=== PATIENT | male | born 1995 | race Caucasian/White ===

== ENCOUNTER 2024-03-20 11:52 | Outpatient (REF) | payer OTHER, SELFPAY ==
[2024-03-21 14:24] LABS: Amphetamine Screen Urine Not Detected (Not Detect); Barbiturates, Urine Not Detected (Not Detect); Benzodiazepines Screen Urine Not Detected (Not Detect); Buprenorphine Scr Not Detected (Not Detect); Cannabinoid Screen Urine POSITIVE (Not Detect); Cocaine Screen Urine Not Detected (Not Detect); Fentanyl, urine Not Detected (Not Detect); Methadone Screen, Urine Not Detected (Not Detect); Opiate Screen Urine Not Detected (Not Detect); Oxycodone Screen Urine Not Detected (Not Detect); Phencyclidine Screen Urine Not Detected (Not Detect)
== END 2024-03-20 11:53 | disposition home or self-care (01) ==
LOC: HO.LNP 11:52
PROVIDERS: Visit Provider Psychiatry & Neurology Psychiatry
DX: F33.2 Major depressive disorder, recurrent severe without psychotic features (principal); F12.20 Cannabis dependence, uncomplicated; F41.1 Generalized anxiety disorder
CPT/HCPCS: 80307

== ENCOUNTER → 2024-03-20 12:30 | Outpatient (BNV) | payer OTHER, SELFPAY | PROVIDERS: Visit Provider Psychiatry & Neurology Psychiatry | DX: F34.1 Dysthymic disorder (principal); F84.9 Pervasive developmental disorder, unspecified; F12.20 Cannabis dependence, uncomplicated; F41.3 Other mixed anxiety disorders; F17.200 Nicotine dependence, unspecified, uncomplicated; F31.9 Bipolar disorder, unspecified | CPT/HCPCS: 90792; 99213 ==

== ENCOUNTER 2024-03-31 12:30 | Outpatient (RCR) | payer OTHER, SELFPAY ==
[2024-03-20 12:00] VITALS: BMI 20.5
[2024-03-20 12:02] VITALS: BP 124/66; PULSE 73; TEMP 37.3
--- NOTE | 2024-03-20 13:24 | PC.NURSE ---
Patient is a 28 year old single male who was referred to [facility] by his therapist d/t sxs of depression and cannabis use. Patient reportedly rarely leaves his home and struggling with personal hygiene. He is having difficulty maintaining responsibilities since his mother last year. Patient lives with is father and older brother who is 30 years old. Patient reports he had 2 older sisters who passed both of whom he is not clear about how they passed. One sister suddenly 7 years ago in her 40's who struggled with alcohol and other sister 4 years ago in her 40's and was put in a medically induced coma. He is struggling with grief over his mothers last February 2023. He stated she had 3 different types of cancer including pancreatic and thyroid cancer. He also feels like he let his other down by not finishing HS or getting his GED along with his license to drive. Patient reports using Marijuana daily smoking a gram a day. Stated he started using in 5th grade. 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 Not currently employed. Patient currently is alert and oriented x4. Calm and cooperative. Presented with depressed mood and affect. Reports passive SI stating, It would be easier if I just ended it and that way I wouldn't be a burden to other people . Denied any plans or intention of killing himself. Stated he harms himself by smoking cigarettes and would be too frightened to do anything else. He was given a copy of his safety plan if needed. Medications reconciled with patient and patient's pharmacy. He stated he restarted taking his medications last night and this morning. Dr Avila is aware.
--- NOTE | 2024-03-20 16:53 | P.HPPSP_ITS ---
HPI Date of Service: 03/20/24 Chief Complaint: depression,TITUS Sources of Information: patient interviewed, chart reviewed and crisis/core team assessment reviewed HPI Narrative: Patient is a 28 yo single, unemployed male on disability for chronic depression, bipolar depression, anxiety. He relays a history of disruptive mood, particularly temper tantrums and behavioral issues throughout childhood and adolescence, dx ODD, query autism and other developmental considerations who was referred by his therapist for further support and day structure. Patient says it has been a steep learning curve over the past year; he has had to take over general finances, managing mortgage payments and general household finances since his mother passed from cancer last summer 2022. He briefly worked over 10 years ago after dropping out of high school in the 10th grade and continues living at home with his father and brother. He no longer deals anger outbursts, he feels he has matured beyond that as an adult, although still tends to get frustrated and irritated by people and situations said he is working on his neutral facial expression which others tend to interpret as anger. He denies any known history of learning delays or ADHD, he is not sure if he was on an IEP or 504; he was a fairly average student mostly with Bs and Cs and was not particularly invested in his education. His mother used to take care of everything which he has had to learn to do, It's been hard but it is getting a little easier . His father allegedly is illiterate. He denies any acute stessors at home. He admits he is not historically been good at taking his medications regularly. He is currently on Wellbutrin and mirtazapine but says he still has an entire full bottle at home of each, although is compliant with daily MV and magnesium supplements which he just ran out of. Past Psychiatric History: Denies IPLOC or detox/rehab admission PHP remotely in adolescence Remote suicide attempt at age 10 or 11 by hanging with a bungee cord. Stats he didn't know how to attempt back then (just tried to use his hands to strangulate himself) but says it didnt work out. He denies any attempts since and says it's not worth trying Therapist: Emily Psychiatric provider: Previous meds: Focalin XR, clonidine, sertraline, quetiapine CURRENT MEDICATIONS bupropion extended release 300 mg qam mirtazapine 30 mg qhs magnesium glycinate 100 mg qhs daily multivitamin [facility] Medical History (Updated 04/06/24 @ 01:36 by Kaitlin Avila MD) Magnesium deficiency Amblyopia of right eye No known health problems Narrative: overall healthy s/p surgical correction of lazy eye (R) denies seizures denies concussions/TBI Ht: 5'9 Wt: 139 lbs ALL: NKDA Surgical History (Updated 03/20/24 @ 12:00 by Adri Roldan RN) H/O eye surgery Family History: Mother with depression Father with depression Denies any addiction or suicides in family Social History: Single, no children. 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 Substance History: Cannabis use all day, everyday Cigarettes use ~ 2 ppd since age 14 Denies any alcohol use hx Denies any illicit drug use (although per initial assessment - reported 5 instances of cocaine/crack use, mushrooms in early 20s) Trauma History: Endured bullying throughout childhood, of his mother was also traumatic as she provided much emotional support and functional support Diagnostics Vital Signs (24Hr): Vital Signs - 24 hr 03/20/24 12:02 Temperature 99.2 F Pulse Rate 73 Blood Pressure 124/66 BMI result Body Mass Index 20.5 Meds/Allergies Meds Home Medications ?Medication ?Instructions ?Recorded ?Confirmed ?Type bupropion HCl 150 mg 24 hr tablet, 300 mg PO QAM 03/20/24 03/20/24 History extended release mirtazapine 15 mg tablet 30 mg PO BEDTIME 03/20/24 03/20/24 History multivitamin 1 tab PO DAILY 03/20/24 03/20/24 History Allergies Allergies Allergy/AdvReac Type Severity Reaction Status Date / Time No Known Allergies Allergy Verified 03/20/24 12:00 Mental Status Exam Mental Status Exam Narrative: Alert, oriented, in no acute distress. Calm, cooperative, bruna responses, oddly related. No psychomotor agitation or neurovegetative retardation. Eye contact avoidant. Mood depressed, affect constricted, irritable edge without notable lability. Speech normal monotone, low prosody, varying volume, no pressured or latency.. Thought process linear, coherent. Thought content related to stressors, feeling overwhelmed, denies SI, intention, urge or plan. Denies any aggressive ideation or HI. No paranoia or delusional content elicited. No evidence of psychosis. Insight and judgment - fair but adequate Assessment & Plan Assessment & Plan (1) Dysthymia: Status: Acute Code(s): F34.1 - Dysthymic disorder (2) Pervasive developmental disorder: Status: Acute Code(s): F84.9 - Pervasive developmental disorder, unspecified (3) Bipolar disorder, unspecified: Status: Acute Code(s): F31.9 - Bipolar disorder, unspecified (4) Cannabis use disorder, severe, dependence: Status: Acute Code(s): F12.20 - Cannabis dependence, uncomplicated (5) Other mixed anxiety disorders: Status: Acute Code(s): F41.3 - Other mixed anxiety disorders (6) Nicotine dependence: Status: Acute Code(s): F17.200 - Nicotine dependence, unspecified, uncomplicated Plan Admit to [facility] VS reviewed: abrefile, BP 124/66;?73 bpm continue other regular medications? bupropion extended release 300 mg qam mirtazapine 30 mg qhs magnesium glycinate 100 mg qhs multivitamin Routine lab work ordered EKG, routine for baseline QTc for medication considerations UDS as indicated [facility] reviewed Continue to monitor as per protocol Patient educated on: diagnosis, medication risk/benefits and substance abuse Informed Consent: understands Reason for continued partial hosp. stay Substantial Risk for: inability to function and med/psych decompensation Certification I certify that partial hospital treatment is medically necessary due to the symptoms and problems resulting from the patient's mental illness and the failure to treat the patient at the partial hospital level of care would likely result in the patient requiring inpatient psychiatric care which could not be prevented at a less intensive level of care. Time Spent With Patient Time: Total time managing care of this patient today __60__ minutes.
--- NOTE | 2024-03-23 17:11 | HO.PHP ---
Client's case has been opened and reviewed in team.
--- NOTE | 2024-03-24 08:26 | HO.PHP ---
PHP staff member faxed the referral over to [facility] for med management for Lyle Arce. PHP staff member is awaiting a call back with scheduled appointment dates and times.
--- NOTE | 2024-03-31 22:36 | P.PNPSP_ITS ---
Subjective Subjective Date of Service: 03/31/24 Reason For Visit: depression,TITUS Interim History: Patient seen for follow-up. He is anticipating discharge at the end of the day. Reports cutting down on cigarettes and weed. He thinks it has contributed to better sleep. Anxiety still comes and goes and asks if he can have something to help with anxiety and calming his mind from running . Mood yea ok. not great. not the worst . Anxiety makes him feels uncomfortable out amongst people. [place] helped numb that. He is willing to try guanfacine and r/b/se reviewed. He is agreeable to calling back with any questions or issues and agrees to make an appointment with his PCP. COntinues with therapist. Medication Compliance: Yes Side effects from medications: No Attending Groups: Yes Review of Systems Acute medical concerns: No Mental Status Exam Mental Status Exam Narrative: Alert, oriented, in no acute distress. Calm, cooperative, bruna responses, oddly related. No psychomotor agitation or neurovegetative retardation. Eye contact avoidant. Mood anxious, affect constricted, irritable edge without notable lability. Speech normal monotone, low prosody, varying volume, no pressured or latency.. Thought process linear, coherent. Thought content related to stress ors, feeling overwhelmed, denies SI, intention, urge or plan. Denies any aggressive ideation or HI. No paranoia or delusional content elicited. No evidence of psychosis. Insight and judgment - fair but adequate Diagnostics Vital Signs (24Hr): BMI result Body Mass Index 20.5 Assessment & Plan Assessment & Plan (1) Dysthymia: Status: Acute Code(s): F34.1 - Dysthymic disorder (2) Pervasive developmental disorder: Status: Acute Code(s): F84.9 - Pervasive developmental disorder, unspecified (3) Cannabis use disorder, severe, dependence: Status: Acute Code(s): F12.20 - Cannabis dependence, uncomplicated (4) Other mixed anxiety disorders: Status: Acute Code(s): F41.3 - Other mixed anxiety disorders (5) Nicotine dependence: Status: Acute Code(s): F17.200 - Nicotine dependence, unspecified, uncomplicated (6) Bipolar disorder, unspecified: Status: Acute Code(s): F31.9 - Bipolar disorder, unspecified Plan [facility]charge from [facility] continue other regular medications? bupropion extended release 300 mg qam mirtazapine 30 mg qhs magnesium glycinate 100 mg qhs multivitamin Refills sent to pharmacy Will defer further medication management to outpatient provider *Safety plan reviewed *Discharge diagnoses, treatment course, discharge plan have been reviewed with patient (including medication regime, medication management, potential side effects) as well as treatment rationale were also revisited *Discharge paperwork signed and given to patient, copy sent for scanning to chart Patient educated on: diagnosis, medication risk/benefits and substance abuse Informed Consent: understands Reason for contiued partial hosp. stay Substantial Risk for: stable for discharge Certification I certify that partial hospital treatment is medically necessary due to the symptoms and problems resulting from the patient's mental illness and the failure to treat the patient at the partial hospital level of care would likely result in the patient requiring inpatient psychiatric care which could not be prevented at a less intensive level of care. Total time managing care of this patient today __30__ minutes. Discharge Plan Discharge Attending provider: Kaitlin Avila Additional Instructions: 04/04/2024? 11:00 AM - 12:00 PM [facility] Adult Comprehensive Assessment?-In-Office?([facility] [address] [place] [id number]? ) Prog: Outpatient Site: [facility] Staff: ANITA LEON ?? 04/24/2024? 11:00 AM - 12:00 PM Psychiatric E/M New -?Telehealth v2 Prog: Psychiatric Services Site: [facility] Staff: KATLIN OSPINA Medications: New guanfacine 1 mg tablet extended release 24 hr 1 mg PO DAILY Qty: 20 0RF Continued multivitamin Tablet 1 tab PO DAILY Rx Instructions: Last filled in July,. mirtazapine 15 mg tablet 30 mg PO BEDTIME bupropion HCl 150 mg tablet extended release 24 hr 300 mg PO QAM magnesium glycinate 100 mg magnesium capsule 100 mg PO BEDTIME Qty: 30 0RF Rx Instructions: Last filled 07/19/24 90 day supply. Stand Alone Forms: Patient Portal Discharge page Print Language: Irish
== END 2024-03-31 23:59 | disposition home or self-care (01) ==
LOC: HO.PHPA 12:30
PROVIDERS: Visit Provider Psychiatry & Neurology Psychiatry
DX: F34.1 Dysthymic disorder (principal); F84.9 Pervasive developmental disorder, unspecified; F31.9 Bipolar disorder, unspecified; F41.3 Other mixed anxiety disorders; F12.20 Cannabis dependence, uncomplicated; F17.200 Nicotine dependence, unspecified, uncomplicated
CPT/HCPCS: 90791; 90853